=== PATIENT | male | born 1995 | race Two or more races ===

== ENCOUNTER 2016-07-30 14:35 | Emergency (ER) | payer SELFPAY ==
--- NOTE | ~2016-07-30 | ER ---
[facility] AGE[facility] 21 Y [address] ROOM: [place] [id number] LOCATION: ED ADMIT DATE: 07/30/2016 ER/Outpatient Report DISCHARGE DATE: 07/30/2016 FAMILY PHYSICIAN: PHYSICIAN, NO ATTENDING PHYSICIAN: Ariel Gardner Admission date and time documented in the medical record. I saw the patient at 0450 hours. CHIEF COMPLAINT: Right knee pain and swelling. HISTORY OF PRESENT ILLNESS: This patient is a 21-year-old male, who had a near syncopal episode about a week ago, and he kind of fell backwards, and his right knee buckled. He has had some swelling and increasing pain with ambulation on this knee since that initial injury, worse over the past 2 days. He has not had any fever, chills, sweats, and knee has not been red or hot. He has had no previous injury to this knee or surgery to this knee. No history of any arthritis, juvenile rheumatoid arthritis, or gout. No other injuries. HOME MEDICATIONS: None. ALLERGIES: NONE. SOCIAL HISTORY: Nonsmoker. Occasional use of alcohol and marijuana. SIGNIFICANT PAST MEDICAL HISTORY: Negative. OPERATIONS: None. REVIEW OF SYSTEMS: All systems reviewed by me are negative with the exception of those discussed in the history of present illness. PHYSICAL EXAMINATION: VITAL SIGNS: Temperature 97.8 tympanic, pulse 110, respirations 20, blood pressure 155/83, O2 saturation on room air is 99%. MUSCULOSKELETAL: On examination of the knee, there is swelling of the right knee, that appears to be soft tissue versus joint effusion. He has mild PAT[facility] AGE: 21 Y [address] ROOM: [place] [id number] LOCATION: [facility] ADMIT DATE: 07/30/2016 ER/Outpatient Report DISCHARGE DATE: 07/30/2016 FAMILY PHYSICIAN: PHYSICIAN, NO ATTENDING PHYSICIAN: Ariel Gardner tenderness over the posterior aspect of the medial joint line. His range of motion is slightly restricted as far as full extension because of the pain, although his knee does not click or lock. His ligaments appear to be stable. No anterior drawer sign. Patella moves well. There is no pain over the inferior or superior patellar tendon. LABORATORY DATA AND X-RAYS: X-ray shows good joint space. No fracture. No dislocation. We will review all plain films with the radiologist. IMPRESSION: Right knee pain. Most likely, strain. Does not have any ligamentous laxity. Does not have any major joint line tenderness consistent with a cartilaginous tear, although there still could be some injury to the tendons without completely tearing them. Could be a tear in the meniscus. PLAN: We did put him in a knee immobilizer with crutches. He is to have non to minimal weightbearing using the crutches, ice, elevation intermittently as needed. Aleve 2 orally 2 times a day with food x7 to 10 days. We discussed that if he does not get better in 7 to 10 days, most likely, should see an orthopedic surgeon for consultative exam and possibly an MRI. Follow up with personal physician as needed. Discussion ensued with the patient concerning all this and he understands. MD MAXX ROCHA/modl /[id number] d: 07/30/169 t: 08/10/16 181, OUTPATIENT REPORT
== END 2016-07-30 15:50 | disposition disaster alternative care site (69) ==
LOC: GMED 14:35
PROC: 2W3QX1Z Immobilization of Right Lower Leg using Splint (ICD-10-PCS; principal; 2016-07-30)
DX: M25.561 Pain in right knee (principal)